=== PATIENT | female | born 1945 ===

== ENCOUNTER 2019-09-27 11:59 | Outpatient (CLI) | payer OTHER | END 2019-09-27 12:16 | disposition home or self-care (01) | LOC: SONOGRAMA 11:59 | PROVIDERS: ATTEND Pathology Anatomic Pathology | DX: E04.2 Nontoxic multinodular goiter (principal) ==

== ENCOUNTER 2023-01-06 10:30 | Outpatient (CLI) | payer OTHER | END 2023-01-06 10:38 | disposition home or self-care (01) | LOC: SONOGRAMA 10:30 | PROVIDERS: ATTEND Pathology Anatomic Pathology & Clinical Pathology | DX: D34 Benign neoplasm of thyroid gland (principal); E04.9 Nontoxic goiter, unspecified ==